=== PATIENT | female | born 1990 | race Caucasian/White ===

== ENCOUNTER 2018-05-05 23:28 | Emergency (ER) | payer OTHER ==
[~2018-05-05] VITALS: Ht 172.7 cm; Wt 76.2 kg
[2018-05-05 23:34] VITALS: BP 116/71
[2018-05-06] MEDS ORDERED: ULTRAM 50MG TAB50 MG PO (00:28)
[2018-05-06] MEDS ORDERED: IBUPROFEN 600600 M1 PO (00:28)
[2018-05-06] MEDS ORDERED: ZOFRAN ODT4 MG PO (00:28)
== END 2018-05-06 00:38 | disposition home or self-care (01) ==
LOC: ER 23:28
DX: S82.002A Unspecified fracture of left patella, initial encounter for closed fracture (principal); W18.40XA Slipping, tripping and stumbling without falling, unspecified, initial encounter; Y93.01 Activity, walking, marching and hiking; Y92.481 Parking lot as the place of occurrence of the external cause; Y99.8 Other external cause status